=== PATIENT | female | born 1995 | race Caucasian/White ===

== ENCOUNTER 2017-02-24 22:44 | Emergency (ER) | payer BC ==
[~2017-02-24] VITALS: Ht 177.8 cm; Wt 81.8 kg
[2017-02-24 22:54] VITALS: BP 129/72; TEMP 98.7
[2017-02-24] MEDS ORDERED: ZOVIA 1/35E 351 TAB PO (23:32)
[2017-02-24] MEDS ORDERED: CYMBALTA 60MG60 MG PO (23:33)
[2017-02-24 23:53] LABS: BASO # 0.1 (0.0-0.2); BASO % 0.7 % (0.0-2.0); EOS # 0.4 (0.0-0.7); EOS % 4.3 % (0-4.0); HEMATOCRIT 43.7 % (37.0-47.0); HEMOGLOBIN 14.1 g/dl (12.5-16.0); LYMPH # 3.2 (1.2-3.4); LYMPH % 33.3 % (20.0-51.0); MEAN CELL VOLUME 84 fl (80.0-100.0); MEAN CORPUSCULAR HEMOGLOBIN 27 pg (27.0-31.0); MEAN CORPUSCULAR HGB CONC 32 g/dl (33.0-37.0); MEAN PLATELET VOLUME 10.8 fl (7.4-10.4); MONO # 0.8 (0.1-0.6); MONO % 8.5 % (1.7-9.3); PLATELET COUNT 310 K/mm3 (130-400); RED BLOOD COUNT 5.19 M/mm3 (4.10-5.30); REDCELL DISTRIBUTION WIDTH-CV 13.3 % (11.5-14.5); WHITE BLOOD COUNT 9.5 K/mm3 (4.8-10.8)
[2017-02-25 00:04] LABS: AMPHETAMINE URINE NEGATIVE; BARBITURATES URINE NEGATIVE; BENZODIAZEPINES URINE NEGATIVE; BUPRENORPHINE URINE NEGATIVE; METHADONE URINE NEGATIVE; OPIATES URINE NEGATIVE; OXYCODONE URINE NEGATIVE; PHENCYCLIDINE URINE NEGATIVE; PROPOXYPHENE URINE NEGATIVE; THC CANNABINOIDS URINE NEGATIVE
[2017-02-25 00:15] LABS: ACETAMINOPHEN < 10 ug/mL (10-30); ADJUSTED CALCIUM 9.4 mg/dL (8.4-10.2); ALANINE AMINOTRANSFERASE 26 U/L (9-52); ALBUMIN 4.3 gm/dL (3.5-5.0); ALKALINE PHOSPHATASE 70 U/L (50-136); ANION GAP 12 mmol/L (7-16); BILIRUBIN,TOTAL 0.5 mg/dL (0.0-1.0); BLOOD UREA NITROGEN 9 mg/dL (7-17); CALCIUM 9.6 mg/dL (8.4-10.2); CARBON DIOXIDE 24 mmol/L (22-30); CHLORIDE 104 mmol/L (98-107); CREATININE, serum 0.76 mg/dL (0.52-1.25); GLUCOSE 92 mg/dL (74-106); POTASSIUM 4.1 mmol/L (3.4-5.0); SALICYLATE < 1.0 mg/dL; SODIUM 140 mmol/L (137-145); TOTAL PROTEIN 7.3 gm/dL (6.4-8.2)
[2017-02-25 02:51] VITALS: PULSE 88
== END 2017-02-25 02:52 | disposition home or self-care (01) ==
LOC: COL.ER 22:44
PROVIDERS: Nurse Practitioner
DX: F32.9 Major depressive disorder, single episode, unspecified (principal); F17.210 Nicotine dependence, cigarettes, uncomplicated; Z32.02 Encounter for pregnancy test, result negative

== ENCOUNTER 2017-03-20 15:29 | Emergency (ER) | payer BC ==
[~2017-03-20] VITALS: Ht 177.8 cm; Wt 84.1 kg
[~2017-03-20 15:29] MED LIST: CYMBALTA 60MG60 MG PO; ZOVIA 1/35E 351 TAB PO
[2017-03-20 15:30] VITALS: TEMP 98.1
[2017-03-20 15:53] LABS: BASO % 0.4 % (0.0-2.0); EOS # 0.2 (0.0-0.7); EOS % 1.6 % (0-4.0); GRAN # 7.2 (1.4-6.5); GRAN % 68.8 % (42.2-75.2); HEMATOCRIT 44.6 % (37.0-47.0); HEMOGLOBIN 14.4 g/dl (12.5-16.0); LYMPH # 2.3 (1.2-3.4); LYMPH % 21.8 % (20.0-51.0); MEAN CELL VOLUME 85 fl (80.0-100.0); MEAN CORPUSCULAR HEMOGLOBIN 27 pg (27.0-31.0); MEAN CORPUSCULAR HGB CONC 32 g/dl (33.0-37.0); MEAN PLATELET VOLUME 10.1 fl (7.4-10.4); MONO # 0.8 (0.1-0.6); MONO % 7.2 % (1.7-9.3); PLATELET COUNT 377 K/mm3 (130-400); RED BLOOD COUNT 5.26 M/mm3 (4.10-5.30); REDCELL DISTRIBUTION WIDTH-CV 13.2 % (11.5-14.5); WHITE BLOOD COUNT 10.5 K/mm3 (4.8-10.8)
[2017-03-20 16:15] LABS: AMPHETAMINE URINE NEGATIVE; BARBITURATES URINE NEGATIVE; BENZODIAZEPINES URINE NEGATIVE; BUPRENORPHINE URINE NEGATIVE; METHADONE URINE NEGATIVE; OPIATES URINE NEGATIVE; OXYCODONE URINE NEGATIVE; PHENCYCLIDINE URINE NEGATIVE; PROPOXYPHENE URINE NEGATIVE; THC CANNABINOIDS URINE NEGATIVE
[2017-03-20 16:22] LABS: ADJUSTED CALCIUM 9.3 mg/dL (8.4-10.2); ALANINE AMINOTRANSFERASE 37 U/L (9-52); ALBUMIN 4.6 gm/dL (3.5-5.0); ALKALINE PHOSPHATASE 92 U/L (50-136); ANION GAP 12 mmol/L (7-16); BILIRUBIN,TOTAL 0.8 mg/dL (0.0-1.0); BLOOD UREA NITROGEN 12 mg/dL (7-17); CALCIUM 9.8 mg/dL (8.4-10.2); CARBON DIOXIDE 23 mmol/L (22-30); CHLORIDE 103 mmol/L (98-107); CREATININE, serum 0.74 mg/dL (0.52-1.25); GLUCOSE 94 mg/dL (74-106); SODIUM 138 mmol/L (137-145); TOTAL PROTEIN 7.8 gm/dL (6.4-8.2)
[2017-03-20 16:40] LABS: ACETAMINOPHEN < 10 ug/mL (10-30); SALICYLATE < 1.0 mg/dL
[2017-03-20 16:52] LABS: THYROID STIMULATING HORMONE 0.658 uIU/mL (0.465-4.680)
[2017-03-20 18:41] VITALS: BP 129/75; PULSE 80
== END 2017-03-20 20:54 ==
LOC: COL.ER 15:29
PROVIDERS: Emergency Medicine
DX: F32.9 Major depressive disorder, single episode, unspecified (principal); R45.851 Suicidal ideations

== ENCOUNTER 2017-10-03 21:29 | Emergency (ER) | payer BC ==
[~2017-10-03] VITALS: Ht 177.8 cm; Wt 93.2 kg
[2017-10-03 21:33] VITALS: BP 136/68; TEMP 99.4
[2017-10-03] MEDS ORDERED: LATUDA80 MG PO (21:45)
[2017-10-03] MEDS ORDERED: ATARAX 10MG10 MG/TAB PO (21:46)
[2017-10-03] MEDS ORDERED: DESYREL 50MG50 MG PO (21:46)
[2017-10-03] MEDS ORDERED: LAMICTAL 100MG100 MG PO (21:46)
[2017-10-03] MEDS ORDERED: TOPAMAX50 MG PO (21:47)
[2017-10-03 22:02] LABS: COLLECTION METHOD CLEAN CATCH
[2017-10-03] MEDS ORDERED: VITAMIND3 5000 PO (22:07)
[2017-10-03 22:08] LABS: BASO # 0.1 (0.0-0.2); BASO % 0.5 % (0.0-2.0); EOS # 0.2 (0.0-0.7); GRAN % 56.8 % (42.2-75.2); HEMATOCRIT 42.4 % (37.0-47.0); HEMOGLOBIN 14.3 g/dl (12.5-16.0); LYMPH # 3.6 (1.2-3.4); LYMPH % 33.4 % (20.0-51.0); MEAN CELL VOLUME 80 fl (80.0-100.0); MEAN CORPUSCULAR HEMOGLOBIN 27 pg (27.0-31.0); MEAN CORPUSCULAR HGB CONC 34 g/dl (33.0-37.0); MEAN PLATELET VOLUME 10.8 fl (7.4-10.4); MONO # 0.8 (0.1-0.6); MONO % 7.1 % (1.7-9.3); PLATELET COUNT 372 K/mm3 (130-400); RED BLOOD COUNT 5.31 M/mm3 (4.10-5.30); REDCELL DISTRIBUTION WIDTH-CV 13.9 % (11.5-14.5)
[2017-10-03] MEDS ORDERED: B-12 100 MCG PO (22:08)
[2017-10-03] MEDS ORDERED: OMEGA-31 SGL PO (22:09)
[2017-10-03 22:13] LABS: MUCOUS Present /lpf; PH 5 (5-8); SQUAMOUS EPITHELIAL 0-2 /hpf; URINE APPEARANCE Hazy; URINE BACTERIA None Seen /hpf; URINE BILIRUBIN Negative (NEGATIVE); URINE BLOOD Negative (NEGATIVE); URINE COLOR Yellow; URINE GLUCOSE Negative (NEGATIVE); URINE KETONE Negative (NEGATIVE); URINE LEUKOCYTE ESTERASE Negative (NEGATIVE); URINE NITRATE Negative (NEGATIVE); URINE PROTEIN(semi-quant) Negative (NEGATIVE); URINE RBC 0-2 /hpf; URINE UROBILINOGEN Negative (NEGATIVE)
[2017-10-03 22:17] LABS: ACETAMINOPHEN < 10 ug/mL (10-30); ALANINE AMINOTRANSFERASE 29 U/L (9-52); ALBUMIN 4.5 gm/dL (3.5-5.0); ALCOHOL(ethanol),MEDICAL < 10 mg/dL; ALKALINE PHOSPHATASE 96 U/L (50-136); ANION GAP 16 mmol/L (7-16); AST,SGOT 21 U/L (15-37); BILIRUBIN,TOTAL 0.3 mg/dL (0.0-1.0); BLOOD UREA NITROGEN 11 mg/dL (7-17); CALCIUM 9.6 mg/dL (8.4-10.2); CARBON DIOXIDE 21 mmol/L (22-30); CHLORIDE 107 mmol/L (98-107); CREATININE, serum 0.95 mg/dL (0.52-1.25); GLUCOSE 120 mg/dL (74-106); POTASSIUM 3.4 mmol/L (3.4-5.0); SALICYLATE < 1.0 mg/dL; SODIUM 143 mmol/L (137-145); TOTAL PROTEIN 8.3 gm/dL (6.4-8.2)
[2017-10-03 22:29] LABS: TRICYCLIC ANTIDEPRESS URINE NEGATIVE
[2017-10-04 01:35] VITALS: PULSE 80
== END 2017-10-04 01:37 | disposition home or self-care (01) ==
LOC: COL.ER 21:29
PROVIDERS: Emergency Medicine
DX: R45.851 Suicidal ideations (principal); F32.9 Major depressive disorder, single episode, unspecified; F17.210 Nicotine dependence, cigarettes, uncomplicated; F12.90 Cannabis use, unspecified, uncomplicated

== ENCOUNTER 2019-02-05 08:19 | Outpatient (CLI) | payer BC ==
[~2019-02-05] VITALS: Ht 175.3 cm; Wt 102.7 kg
[~2019-02-05 08:19] MED LIST changes: +ATARAX 10MG10 MG/TAB PO; +B-12 100 MCG PO; +DESYREL 50MG50 MG PO; +LAMICTAL 100MG100 MG PO; +LATUDA80 MG PO; +OMEGA-31 SGL PO; +TOPAMAX50 MG PO; +VITAMIND3 5000 PO
[2019-02-05 08:25] VITALS: BP 107/63; PULSE 71; TEMP 98.4
[2019-02-05 08:35] VITALS: BP 107/63; PULSE 71; TEMP 98.4
[2019-02-05] MEDS ORDERED: ABILIFY 15MG TA15 MG PO (08:45)
[2019-02-05] MEDS ORDERED: PRENATAL (08:46)
--- NOTE | 2019-02-05 08:54 | NUR ---
0830 PATIENT HERE FOR COMPLAINTS OF NOT FEELING BABY MOVE FOR COUPLE DAYS. ASSESSMENT COMPLETED. VS WNL . NO CONTRACTIONS FELT BY PAIENT OR ON MONITOR. DENIES NEEDS. EFM ON FHT 140 GOOD ACCELERATIONS NOTED AND BABY VERY ACTIVE. PATIENT STATES CAN FEEL BABY MOVING NOW.
[2019-02-05 09:08] VITALS: BP 104/65; PULSE 71
--- NOTE | 2019-02-05 09:09 | NUR ---
BABY CONTINUES TO BE VERY ACTIVE. DR ANDERSON REVIEWED MONITOR STRIP AND GAVE ORDERS TO DISMISS TO HOME. ALL DISCHARGE INSTRUCTIONS GIVEN TO PATIENT WITH VERBAL UNDERSTANDING NOTED.
== END 2019-02-05 09:10 | disposition home or self-care (01) ==
LOC: LDRO 08:19 → LDR 08:58 → LDRO 09:10
DX: O36.8130 Decreased fetal movements, third trimester, not applicable or unspecified (principal); Z3A.33 33 weeks gestation of pregnancy
CPT/HCPCS: OP

== ENCOUNTER 2019-02-20 21:02 | Outpatient (CLI) | payer BC ==
[~2019-02-20] VITALS: Ht 175.3 cm; Wt 104.5 kg
[~2019-02-20 21:02] MED LIST changes: +ABILIFY 15MG TA15 MG PO; +PRENATAL
[2019-02-20 21:30] VITALS: BP 117/66; PULSE 72; TEMP 97.8
[2019-02-20 21:47] VITALS: BP 117/66; PULSE 72; TEMP 97.8
== END 2019-02-20 22:15 | disposition home or self-care (01) ==
LOC: LDRO 21:02
DX: Z3A.00 Weeks of gestation of pregnancy not specified (principal)

== ENCOUNTER 2019-03-21 18:40 | Outpatient (CLI) | payer BC ==
[~2019-03-21] VITALS: Ht 175.3 cm; Wt 108.6 kg
[2019-03-21 19:00] VITALS: BP 113/63; PULSE 96; TEMP 98
--- NOTE | 2019-03-21 19:30 | NUR ---
184- Patient ambulatory to LDR-4 for possible SROM check. Patient into restroom to void and change into gown. Patient oriented to room. 1849- Patient into bed. EFM and TOCO on and tracing. Patient states she had a gush of fluid at 181 and thinks her water may have broke. Amniotest negative. SVE 250/-3 with minimal fluid on glove during check. No fluid noted with SVE. Patient denies contractions, bleeding, or spotting. 1899- See Physician Notification. Discharge orders received. 1914- FHT strip reviewed with MAYCO Mattson. Moderate variability noted with prolonged accel. 1924- EFM and TOCO off. Discharge instructions explained to patient in detail. Questions encouraged and answered. 1934- Patient ambulatory off unit.
== END 2019-03-21 19:35 | disposition home or self-care (01) ==
LOC: LDR 18:40 → LDRO 18:40 → LDR 19:10 → LDRO 19:35 → LDR 19:35 → LDRO 03-22 09:17
DX: Z34.93 Encounter for supervision of normal pregnancy, unspecified, third trimester (principal); Z3A.40 40 weeks gestation of pregnancy
CPT/HCPCS: OP

== ENCOUNTER 2019-03-24 05:34 | Inpatient (IN) | payer BC ==
[~2019-03-24] VITALS: Ht 175.3 cm; Wt 109.1 kg
[2019-03-24] VITALS (58 sets, daily range): BP systolic 95–140; BP diastolic 51–100; PULSE 65–111; TEMP 97.9–99.7
[2019-03-24 08:18] LABS: BASO # 0.1 (0.0-0.2); BASO % 0.3 % (0.0-2.0); EOS # 0.6 (0.0-0.7); EOS % 2.9 % (0-4.0); GRAN # 14.8 (1.4-6.5); GRAN % 76.7 % (42.2-75.2); HEMOGLOBIN 11.2 g/dl (12.5-16.0); LYMPH # 2.4 (1.2-3.4); LYMPH % 12.5 % (20.0-51.0); MEAN CELL VOLUME 77 fl (80.0-100.0); MEAN CORPUSCULAR HEMOGLOBIN 24 pg (27.0-31.0); MEAN CORPUSCULAR HGB CONC 31 g/dl (33.0-37.0); MEAN PLATELET VOLUME 12.4 fl (7.4-10.4); MONO # 1.3 (0.1-0.6); PLATELET COUNT 253 K/mm3 (130-400)
[2019-03-24 08:33] LABS: HEMATOCRIT 36.3 % (37.0-47.0)
--- NOTE | 2019-03-24 08:45 | NUR ---
Assume care of patient. Sits up for epidural. Local given by anesthesia Blake Bonilla c.r.n.a. 0856 Space obtained by anesthesia. 0857 Catheter placed by anesthesia Blake Bonilla c.r.n.a. Lies down after epidural
--- NOTE | 2019-03-24 09:00 | NUR ---
Rests in bed, alert. States feeling better.
--- NOTE | 2019-03-24 09:30 | NUR ---
Having emesis at bedside. States doing better.
--- NOTE | 2019-03-24 09:45 | NUR ---
Rests in bed, alert. Whalen catheter placed per sterile technique by assisted living nursing director and this nurse. Moderate amount of clear yellow urine noted.
--- NOTE | 2019-03-24 10:30 | NUR ---
1040 Dr. Cotto here, arom done, moderate amount of clear fluid noted. Pad changed and repositioned.
--- NOTE | 2019-03-24 11:00 | NUR ---
1107 Ephedrine 10 mg iv given for blood pressure 95/51, then came up to 104/57.
--- NOTE | 2019-03-24 12:00 | NUR ---
1210 Pen g 2.5 million units iv given as ordered and per protocol. Repositioned to left side with peanut ball.
--- NOTE | 2019-03-24 12:15 | NUR ---
Repositioned to left side. Having late decels. See physicians notification please.
--- NOTE | 2019-03-24 13:00 | NUR ---
Rests in bed, alert. Vag exam done, dilated to nine, 100% efface, minus [address] Cotto called and gave this information to her nurse. Also let her know that having variables down in the seventys to nintys for forty seconds and then back up to 130s.
--- NOTE | 2019-03-24 13:30 | NUR ---
Rests in bed, alert. Vag exam done, dilated seven to eight, ninty percent effaced and minus one station. Pad changed and repositioned. States has a headache. Dr. Cotto called and reported patient has a headache. New order for tylenol [address] Cotto know that patient dilated to 7-8, ninty percent effaced, minus one station. Also let her know that she is bradley every two minutes.
--- NOTE | 2019-03-24 13:45 | NUR ---
1352 Tylenol 650 mg given as ordered for headache.
--- NOTE | 2019-03-24 14:30 | NUR ---
Rests in bed, alert. Repositioned in bed. Denies any needs at this time.
--- NOTE | 2019-03-24 16:00 | NUR ---
Pen g 2.5 million units iv given as ordered and per protocol. Repositioned right side with peanut ball.
--- NOTE | 2019-03-24 16:15 | NUR ---
Having variables down in the nintys for thirty seconds. Peanut ball out and repositioned to left side.
--- NOTE | 2019-03-24 16:30 | NUR ---
Deeper variable decel down in the eightys for fifty seconds, then back up to 150s. This nurse and nurse Leora gets patient up on knees and chest. Hard to pick baby up on monitor. Dr. Cotto informed of variables down in the 80s-90s for forty to fifty seconds. States will be up after bit. 1642 Patient back on back, vag check done, complete. scalp electrode placed by this nurse. Continues to have variables down in the eightys for forty seconds. 1643 This nurse has nurse Calley call Dr. Cotto to come to hospital.
--- NOTE | 2019-03-24 16:45 | NUR ---
1656 Dr. Cotto here, prepped for pushing.
--- NOTE | 2019-03-24 17:00 | NUR ---
Continues to push with Dr. Cotto. Variable decels continue down in the eightys to nintys for 40-50 seconds, then back up to 150s.
--- NOTE | 2019-03-24 17:15 | NUR ---
Continues to push with Dr. Cotto. Variable decels continue down in the eightys to nintys for forty seconds. heart rate increasing to 160s.
--- NOTE | 2019-03-24 17:30 | NUR ---
Continues to push with contractions with Dr. Cotto.
--- NOTE | 2019-03-24 17:45 | NUR ---
Dr. Cotto visits with patient about not making much change, and that heart rate up to 170s-180s. Also talks to patient about section. 1750 Patient agrees. section called. Prepped for . 1800 Anesthesia here, medication given. Whalen catheter placed per sterile technique. 180 To o.r. via bed with this nurse and nurse Corey. 1814 Report given to nurse Cruz.
--- NOTE | 2019-03-24 19:45 | NUR ---
1945 TO 213 PER BED FROM PACU. IV FLUIDS CONT TO INFUSE. CHARLES PATENT WITH RED TINGED URINE IN BAG BUT CLEARER IN CATHETER. 1950 PO TAKEN WITHOUT PROBLEM. PERCOCET 2 PO GIVEN FOR INC PAIN. VISITORS IN ROOM
[2019-03-25 01:00] VITALS: BP 120/51; PULSE 87; TEMP 98.9
[2019-03-25 07:05] VITALS: BP 108/59; PULSE 79; TEMP 98
--- NOTE | 2019-03-25 10:16 | NUR ---
Congratulated the family on their new baby.
[2019-03-25 11:20] VITALS: BP 109/63; PULSE 90; TEMP 98.3
[2019-03-25 16:00] VITALS: BP 112/64; PULSE 91; TEMP 97.1
[2019-03-25 20:00] VITALS: BP 109/61; PULSE 89; TEMP 98
[2019-03-26 00:10] VITALS: BP 110/68; PULSE 89; TEMP 98.4
[2019-03-26 05:30] VITALS: BP 112/70; PULSE 68; TEMP 98.2
[2019-03-26 07:00] VITALS: BP 127/60; PULSE 89; TEMP 98.2
--- NOTE | 2019-03-26 11:00 | NUR ---
Assume care of patient. Rests in bed, alert, denies any needs at this time.
--- NOTE | 2019-03-26 13:30 | NUR ---
1340 Ibuprofen 600 mg given as ordered.
[2019-03-26 15:30] VITALS: BP 136/74; PULSE 91; TEMP 98
--- NOTE | 2019-03-26 17:00 | NUR ---
1715 Percocet 5\325 mg one given per request and as ordered.
[2019-03-26 19:30] VITALS: BP 113/74; PULSE 90; TEMP 98.2
[2019-03-27 08:00] VITALS: BP 122/69; PULSE 85; TEMP 97.5
[2019-03-27] MEDS ORDERED: PERCOCET 325 MG1 TA2 PO (13:02)
[2019-03-27] MEDS ORDERED: IBU600 MG PO (13:02)
== END 2019-03-27 15:30 | disposition home or self-care (01) | DRG 788 ==
LOC: LDRO 05:34 → LDR 07:21 → OB 19:45
PROVIDERS: ADMIT Obstetrics & Gynecology
PROC: 10D00Z1 Extraction of Products of Conception, Low, Open Approach (ICD-10-PCS; principal; 2019-03-24)
DX: O76 Abnormality in fetal heart rate and rhythm complicating labor and delivery (principal); O99.344 Other mental disorders complicating childbirth; F25.0 Schizoaffective disorder, bipolar type; F41.9 Anxiety disorder, unspecified; O99.824 Streptococcus B carrier state complicating childbirth; F43.10 Post-traumatic stress disorder, unspecified; Z3A.40 40 weeks gestation of pregnancy; O62.1 Secondary uterine inertia; Z37.0 Single live birth; Z28.9 Immunization not carried out for unspecified reason
CPT/HCPCS: J0171; J0690; J1885; J2370; J2400; J2405; J2540; J2590; J2791; J2795; J3010; J7120

== ENCOUNTER → 2019-03-28 | Outpatient (CLI) | payer BC ==
[~2019-03-28] MED LIST changes: +IBU600 MG PO; +PERCOCET 325 MG1 TA2 PO
--- NOTE | 2019-03-28 12:41 | NUR ---
Pt, Nimo Bowers and her mother, into clinic with four day old baby girl, Ita, for evaluation and weight check. Ita was born on [birth year] via c/s. Dayanara's weight is noted as 7# 10 oz. Nimo states she feels Ita nursed well the first day of life, then did not nurse as well the last two days in the hospital so she started using a breast shield to help Ita latch. At discharge on 03/27, Ita weighed 7# 0 oz, a loss of 8% from weight. Today's prefeed weight was noted as 6# 10.1 oz, a loss of 13% since weight. Nimo states she going home, Ita has been very sleepy and not waking well for feedings. Nimo states that in the last 24 hours, Ita has had one transitional stool, approx 5 wet diapers, and has been to the breast eight times, three of which feeds she gave 24 mls of Similac via SNS. While in clinic, Nimo put Ita to the left breast. Good positioning, latch, and active suckling noted; however, no audible swallows. Iat was at the breast for approximently 10 min and post feed weight showed a zero gain. Nimo attempted to put Ita to left breast using SNS, but was unable to obtain latch. LC noted to be sleepy during feeding attempt. Nimo gave Ita 60 mls Similac via bottle which Ita took well with with no spitting up. POC: Starting immediately, use 3-Step feeding method of , working up to 10-15 min per breast, then give 2 oz- 2 + oz supplement via bottle, then pump with each feeding for 10-15 min. Attend appointment with Dr. Grant 03/29/19. Follow up in lacation clinic next Wednesday or call office before Wednesday with any further concerns. Questions invited and answered. Understanding verbalized.
== END ==
LOC: LAC 10:21
DX: Z39.1 Encounter for care and examination of lactating mother (principal); Z71.89 Other specified counseling

== ENCOUNTER 2019-04-22 21:24 | Emergency (ER) | payer BC ==
[~2019-04-22] VITALS: Ht 177.8 cm; Wt 95.5 kg
[2019-04-23 02:19] VITALS: BP 102/66; PULSE 86; TEMP 97.6
== END 2019-04-23 02:40 | disposition home or self-care (01) ==
LOC: COL.ER 21:24
DX: T18.128A Food in esophagus causing other injury, initial encounter (principal)
CPT/HCPCS: J2250; J2405; J3010; J7030

== ENCOUNTER 2019-05-22 09:31 | Emergency (ER) | payer BC ==
[~2019-05-22] VITALS: Ht 175.3 cm; Wt 95.5 kg
[2019-05-22 09:38] VITALS: TEMP 98.7
[2019-05-22 10:23] LABS: BASO % 0.5 % (0.0-2.0); EOS # 0.4 (0.0-0.7); EOS % 4.1 % (0-4.0); GRAN # 5.2 (1.4-6.5); GRAN % 59.1 % (42.2-75.2); HEMATOCRIT 38.6 % (37.0-47.0); LYMPH # 2.5 (1.2-3.4); LYMPH % 28.3 % (20.0-51.0); MEAN CELL VOLUME 76 fl (80.0-100.0); MEAN CORPUSCULAR HEMOGLOBIN 24 pg (27.0-31.0); MEAN CORPUSCULAR HGB CONC 31 g/dl (33.0-37.0); MEAN PLATELET VOLUME 10.2 fl (7.4-10.4); MONO # 0.7 (0.1-0.6); MONO % 7.7 % (1.7-9.3); PLATELET COUNT 332 K/mm3 (130-400); RED BLOOD COUNT 5.11 M/mm3 (4.10-5.30); REDCELL DISTRIBUTION WIDTH-CV 15.4 % (11.5-14.5)
[2019-05-22 10:28] LABS: COLLECTION METHOD CLEAN CATCH
[2019-05-22 10:34] LABS: ALANINE AMINOTRANSFERASE 49 U/L (9-52); ALBUMIN 4.4 gm/dL (3.5-5.0); ALKALINE PHOSPHATASE 90 U/L (50-136); ANION GAP 10 mmol/L (7-16); AST,SGOT 36 U/L (15-37); BILIRUBIN,TOTAL 0.3 mg/dL (0.0-1.0); BLOOD UREA NITROGEN 13 mg/dL (7-17); CARBON DIOXIDE 26 mmol/L (22-30); CHLORIDE 104 mmol/L (98-107); CREATININE, serum 0.74 (0.52-1.25); GLUCOSE 94 mg/dL (74-106); POTASSIUM 3.9 mmol/L (3.4-5.0); SODIUM 140 mmol/L (137-145); TOTAL PROTEIN 7.4 gm/dL (6.4-8.2)
[2019-05-22 10:38] LABS: ACETAMINOPHEN < 10 ug/mL (10-30); ALCOHOL(ethanol),MEDICAL < 10 mg/dL; SALICYLATE < 1.0 mg/dL
[2019-05-22 10:40] LABS: MUCOUS Present /lpf; PH 5 (5-8); SQUAMOUS EPITHELIAL 20-50 /hpf; URINE APPEARANCE Cloudy; URINE BACTERIA None Seen /hpf; URINE BILIRUBIN Negative (NEGATIVE); URINE BLOOD Negative (NEGATIVE); URINE COLOR Yellow; URINE GLUCOSE Negative (NEGATIVE); URINE KETONE Negative (NEGATIVE); URINE LEUKOCYTE ESTERASE Trace (NEGATIVE); URINE NITRATE Negative (NEGATIVE); URINE PROTEIN(semi-quant) Negative (NEGATIVE); URINE RBC 0-2 /hpf; URINE UROBILINOGEN Negative (NEGATIVE)
[2019-05-22 10:48] LABS: TRICYCLIC ANTIDEPRESS URINE NEGATIVE
[2019-05-22 15:37] VITALS: BP 135/81; PULSE 70
== END 2019-05-22 15:37 ==
LOC: COL.ER 09:31
PROVIDERS: Emergency Medicine
DX: R45.851 Suicidal ideations (principal); F31.9 Bipolar disorder, unspecified; Z90.89 Acquired absence of other organs

== ENCOUNTER → 2019-10-05 | Outpatient (CLI) | payer BC ==
[~2019-10-05] MED LIST changes: +EFFEXOR 75M75 MG/TAB PO
[2019-10-11 13:20] LABS: GIARDIA ANTIGEN XXX; OVA AND PARASITE XXX; TRICHROME STAIN XXX
== END ==
LOC: COL.LAB 15:42
PROVIDERS: Internal Medicine Gastroenterology
DX: R19.7 Diarrhea, unspecified (principal)

== ENCOUNTER 2019-11-19 22:58 | Emergency (ER) | payer BC ==
[~2019-11-19] VITALS: Ht 175.3 cm; Wt 102.3 kg
[2019-11-20 00:19] LABS: BASO # 0.1 (0.0-0.2); BASO % 0.6 % (0.0-2.0); EOS # 0.1 (0.0-0.7); EOS % 1.3 % (0-4.0); GRAN # 5.6 (1.4-6.5); GRAN % 65.9 % (42.2-75.2); HEMATOCRIT 38.9 % (37.0-47.0); HEMOGLOBIN 11.9 g/dl (12.5-16.0); LYMPH # 1.7 (1.2-3.4); LYMPH % 20.2 % (20.0-51.0); MEAN CELL VOLUME 74 fl (80.0-100.0); MEAN CORPUSCULAR HEMOGLOBIN 23 pg (27.0-31.0); MEAN CORPUSCULAR HGB CONC 31 g/dl (33.0-37.0); MEAN PLATELET VOLUME 11.4 fl (7.4-10.4); MONO % 11.5 % (1.7-9.3); PLATELET COUNT 245 K/mm3 (130-400); RED BLOOD COUNT 5.28 M/mm3 (4.10-5.30); REDCELL DISTRIBUTION WIDTH-CV 15.8 % (11.5-14.5)
[2019-11-20 00:30] LABS: ALBUMIN 4.2 gm/dL (3.5-5.0); BILIRUBIN,TOTAL 0.4 mg/dL (0.0-1.0); CALCIUM 9.1 mg/dL (8.4-10.2); CREATININE, serum 0.71 (0.52-1.25); POTASSIUM 3.4 mmol/L (3.4-5.0); TOTAL PROTEIN 7.4 gm/dL (6.4-8.2)
[2019-11-20 01:05] LABS: STREP SCREEN NEGATIVE
[2019-11-20 02:46] VITALS: BP 126/84; PULSE 75; TEMP 97.7
== END 2019-11-20 02:49 | disposition home or self-care (01) ==
LOC: COL.ER 22:58
PROVIDERS: Nurse Practitioner Primary Care
DX: J06.9 Acute upper respiratory infection, unspecified (principal); F31.9 Bipolar disorder, unspecified; Z90.49 Acquired absence of other specified parts of digestive tract; Z87.891 Personal history of nicotine dependence; Z20.828 Contact with and (suspected) exposure to other viral communicable diseases
CPT/HCPCS: J7030

== ENCOUNTER 2020-04-18 14:40 | Emergency (ER) | payer BC ==
[~2020-04-18] VITALS: Ht 177.8 cm; Wt 100.0 kg
[2020-04-18 14:51] VITALS: TEMP 98.2
[2020-04-18 15:28] LABS: BASO # 0.1 (0.0-0.2); BASO % 0.5 % (0.0-2.0); EOS # 0.1 (0.0-0.7); EOS % 1.4 % (0-4.0); GRAN # 5.8 (1.4-6.5); GRAN % 59.5 % (42.2-75.2); HEMOGLOBIN 12.6 g/dl (12.5-16.0); LYMPH # 2.9 (1.2-3.4); LYMPH % 29.8 % (20.0-51.0); MEAN CELL VOLUME 73 fl (80.0-100.0); MEAN CORPUSCULAR HEMOGLOBIN 23 pg (27.0-31.0); MEAN CORPUSCULAR HGB CONC 31 g/dl (33.0-37.0); MEAN PLATELET VOLUME 10.2 fl (7.4-10.4); MONO # 0.8 (0.1-0.6); MONO % 8.5 % (1.7-9.3); PLATELET COUNT 305 K/mm3 (130-400); RED BLOOD COUNT 5.59 M/mm3 (4.10-5.30); REDCELL DISTRIBUTION WIDTH-CV 15.7 % (11.5-14.5)
[2020-04-18 15:41] LABS: ALANINE AMINOTRANSFERASE 211 U/L (4-34); ALBUMIN 4.7 gm/dL (3.5-5.0); ALKALINE PHOSPHATASE 136 U/L (50-136); ANION GAP 8 mmol/L (7-16); AST,SGOT 214 U/L (15-37); BILIRUBIN,TOTAL 0.5 mg/dL (0.0-1.0); BLOOD UREA NITROGEN 12 mg/dL (7-17); CALCIUM 9.3 mg/dL (8.4-10.2); CARBON DIOXIDE 27 mmol/L (22-30); CHLORIDE 103 mmol/L (98-107); CREATININE, serum 0.77 (0.52-1.25); GLUCOSE 96 mg/dL (74-106); POTASSIUM 4.1 mmol/L (3.4-5.0); SODIUM 138 mmol/L (137-145); TOTAL PROTEIN 7.9 gm/dL (6.4-8.2)
[2020-04-18 16:02] LABS: ACETAMINOPHEN < 10 ug/mL (10-30); ALCOHOL(ethanol),MEDICAL < 10 mg/dL; SALICYLATE < 1.0 mg/dL
[2020-04-18 16:43] LABS: COLLECTION METHOD CLEAN CATCH
[2020-04-18 16:55] LABS: MUCOUS Present /lpf; PH 5 (5-8); URINE APPEARANCE Hazy; URINE BACTERIA Rare /hpf; URINE BILIRUBIN Positive (NEGATIVE); URINE BLOOD Negative (NEGATIVE); URINE COLOR Amber; URINE GLUCOSE Negative (NEGATIVE); URINE KETONE Trace (NEGATIVE); URINE LEUKOCYTE ESTERASE Trace (NEGATIVE); URINE NITRATE Negative (NEGATIVE); URINE PROTEIN(semi-quant) Negative (NEGATIVE); URINE RBC 0-2 /hpf; URINE UROBILINOGEN Negative (NEGATIVE)
[2020-04-18 17:10] LABS: TRICYCLIC ANTIDEPRESS URINE NEGATIVE
[2020-04-18 19:26] VITALS: BP 104/69; PULSE 78
== END 2020-04-18 19:52 | disposition home or self-care (01) ==
LOC: COL.ER 14:40
PROVIDERS: Emergency Medicine
DX: T14.91XA Suicide attempt, initial encounter (principal); F31.9 Bipolar disorder, unspecified; Z88.2 Allergy status to sulfonamides; Z90.49 Acquired absence of other specified parts of digestive tract; Z87.891 Personal history of nicotine dependence; Z79.899 Other long term (current) drug therapy; X83.8XXA Intentional self-harm by other specified means, initial encounter

== ENCOUNTER 2020-09-20 08:07 | Day surgery (SDC) | payer BC ==
[~2020-09-20] VITALS: Ht 177.8 cm; Wt 105.5 kg
[2020-09-20] MEDS ORDERED: ABIL400 IM (08:23)
[2020-09-20] MEDS ORDERED: EFFEXOR XR75 MG/CAP PO (08:23)
[2020-09-20] MEDS ORDERED: PROTONIX 40MG T40 MG PO (08:24)
[2020-09-20 08:43] VITALS: BP 112/64; PULSE 73; TEMP 98.1
[2020-09-20 09:40] VITALS: BP 103/70; PULSE 72
--- NOTE | 2020-09-20 09:40 | NUR ---
Pt to bay 5 via cart from [place]. Pt drowsy, but awake. Pt ambulates to recliner with stand by assistance. Warm blanket provided. Soda and applesauce given per pt request. Will continue to monitor. Call light within reach.
[2020-09-20 09:55] VITALS: BP 109/60; PULSE 75
--- NOTE | 2020-09-20 09:55 | NUR ---
Pt continues to rest. Tolerating po food and fluids without difficulties. Pt denies needs. Call light within reach.
[2020-09-20 10:10] VITALS: BP 111/77; PULSE 65
--- NOTE | 2020-09-20 10:10 | NUR ---
Pt continues to rest. Denies needs. Call light within reach.
[2020-09-20 10:25] VITALS: BP 107/70; PULSE 60
--- NOTE | 2020-09-20 10:25 | NUR ---
Discharge instructions reviewed. Pt voices understanding. IV site discontinued with all parts intact. Pt up to dress. Call light within reach.
--- NOTE | 2020-09-20 10:44 | NUR ---
Pt escorted to private car car via wheel chair. Pt accompanied home by her friend.
== END 2020-09-20 10:45 | disposition home or self-care (01) ==
LOC: SDCO 08:07
DX: K21.00 Gastro-esophageal reflux disease with esophagitis, without bleeding (principal); K22.70 Barrett's esophagus without dysplasia; K58.0 Irritable bowel syndrome with diarrhea; E66.9 Obesity, unspecified; F31.9 Bipolar disorder, unspecified; Z88.2 Allergy status to sulfonamides; Z79.899 Other long term (current) drug therapy; Z20.822 Contact with and (suspected) exposure to COVID-19; Z90.49 Acquired absence of other specified parts of digestive tract; Z68.33 Body mass index [BMI] 33.0-33.9, adult; Z87.891 Personal history of nicotine dependence; Z82.49 Family history of ischemic heart disease and other diseases of the circulatory system; Z83.3 Family history of diabetes mellitus
CPT/HCPCS: J2704; J7120

== ENCOUNTER 2020-11-13 19:48 | Emergency (ER) | payer BC ==
[~2020-11-13] VITALS: Ht 177.8 cm; Wt 108.2 kg
[~2020-11-13 19:48] MED LIST changes: +ABIL400 IM; +EFFEXOR XR75 MG/CAP PO; +PROTONIX 40MG T40 MG PO
[2020-11-13 19:55] VITALS: BP 116/57; PULSE 89; TEMP 98.4
== END 2020-11-13 20:44 | disposition home or self-care (01) ==
LOC: COL.ER 19:48
DX: Z71.1 Person with feared health complaint in whom no diagnosis is made (principal); Z87.891 Personal history of nicotine dependence

== ENCOUNTER 2020-11-14 16:41 | Emergency (ER) | payer BC ==
[~2020-11-14] VITALS: Ht 177.8 cm; Wt 102.3 kg
[2020-11-14 19:30] VITALS: BP 138/76; PULSE 91; TEMP 98.6
== END 2020-11-14 19:30 | disposition home or self-care (01) ==
LOC: COL.ER 16:41
DX: Z20.3 Contact with and (suspected) exposure to rabies (principal); Z87.891 Personal history of nicotine dependence; Z23 Encounter for immunization

== ENCOUNTER 2020-11-28 08:19 | Outpatient (RCR) | payer BC ==
[~2020-11-28] VITALS: Ht 177.8 cm; Wt 108.2 kg
[2020-11-28 08:47] VITALS: BP 108/66; PULSE 97; TEMP 98.5
[2021-01-03] MEDS ORDERED: PROTONIX 40MG T40 MG PO (08:16)
[2021-01-03] MEDS ORDERED: ABIL400 (08:17)
== END 2021-02-15 | disposition home or self-care (01) ==
LOC: COL.ER
DX: Z23 Encounter for immunization (principal); Z20.3 Contact with and (suspected) exposure to rabies

== ENCOUNTER 2021-01-03 07:45 | Day surgery (SDC) | payer BC ==
[~2021-01-03] VITALS: Ht 177.8 cm; Wt 109.9 kg
[2021-01-03] MEDS ORDERED: PROTONIX 40MG T40 MG PO (08:16)
[2021-01-03] MEDS ORDERED: ABIL400 (08:17)
[2021-01-03 08:19] VITALS: BP 11/75; PULSE 86; TEMP 97.2
[2021-01-03 10:00] VITALS: BP 112/65; PULSE 70; TEMP 97.3
--- NOTE | 2021-01-03 10:00 | NUR ---
Pt to GI bay 4 via cart from ENDO. Pt awake and alert. Pt ambulates to recliner with stand by assist x2. VSS. Muffin and soda given per pt request. Pt denies pain or nausea. Call light within reach.
[2021-01-03 10:15] VITALS: BP 88/73; PULSE 64
--- NOTE | 2021-01-03 10:15 | NUR ---
Pt continues to rest. Denies needs. Call light within reach.
[2021-01-03 10:30] VITALS: BP 116/75; PULSE 79
--- NOTE | 2021-01-03 10:30 | NUR ---
Pt continues to rest. Denies needs. Call light within reach.
[2021-01-03 10:45] VITALS: BP 119/72; PULSE 107
--- NOTE | 2021-01-03 10:45 | NUR ---
Discharge instructions reviewed. Pt voices understanding. IV site discontinued with all parts intact. Pt up to dress. Call light within reach.
--- NOTE | 2021-01-03 11:00 | NUR ---
Pt escorted to private car via wheel chair. Pt accompanied home by her friend.
== END 2021-01-03 11:00 | disposition home or self-care (01) ==
LOC: SDCO 07:45
DX: K20.0 Eosinophilic esophagitis (principal); K29.51 Unspecified chronic gastritis with bleeding; K44.9 Diaphragmatic hernia without obstruction or gangrene; K29.60 Other gastritis without bleeding; K21.9 Gastro-esophageal reflux disease without esophagitis; Q39.8 Other congenital malformations of esophagus; F32.9 Major depressive disorder, single episode, unspecified; F25.0 Schizoaffective disorder, bipolar type; F60.3 Borderline personality disorder; Z20.822 Contact with and (suspected) exposure to COVID-19; Z79.899 Other long term (current) drug therapy; Z87.891 Personal history of nicotine dependence
CPT/HCPCS: J7030